=== PATIENT | female | born 1965 | race Caucasian/White ===

== ENCOUNTER 2019-05-17 06:06 | Inpatient (IN) ==
[2019-05-17] MEDS ORDERED: Albuterol 2.5 MG/3 ML NEBULIZER ONE (06:33)
[2019-05-17] MEDS ORDERED: Albuterol 2.5 MG/3 ML NEBULIZER IH ONE ×2 (06:37→08:33)
[2019-05-17] MEDS ORDERED: Lidocaine -MPF 2% 2 ML VIAL ONE (06:56)
[2019-05-17] MEDS ORDERED: Lidocaine -MPF 4% 5 ML AMPUL ONE (06:56)
[2019-05-17] MEDS ORDERED: Ondansetron 4 MG/2 ML VIAL ONE (06:56)
[2019-05-17] MEDS ORDERED: *HR* Rocuronium Bromide 50 MG/5 ML VIAL ONE (06:56)
[2019-05-17] MEDS ORDERED: Dexamethasone 4 MG/ML VIAL ONE (06:56)
[2019-05-17] MEDS ORDERED: *HR* FentaNYL (PF) 100 MCG/2 ML VIAL ONE (06:58)
[2019-05-17] MEDS ORDERED: *HR* Propofol 200 MG/20 ML VIAL IVP ONE (06:58)
[2019-05-17] MEDS ORDERED: *HR* Midazolam HCl 2 MG/2 ML VIAL ONE (06:58)
--- NOTE | 2019-05-17 07:26 | History & Physical Report ---
Date of Encounter: 05/17/19 Time of Encounter: 07:25 24 Hour HP Update - Instructions Instructions: If the History and Physical is less than 30 days old and was completed prior to A.M. admission and or procedure and has NOT been updated on calendar day of procedure please complete this update prior to performing procedure. - Update Patient reports changes in Medical Condition: No Changes in examination, assessment, or condition: No Changes in Medication: No Preop tests/diagnostics Reviewed: Yes Pre-Op MRSA Screen: Negative Surgery Remains Indicated: Yes Consent for Planned Operative Procedure(s) Verified: Yes - Pre-Operative Checklist Preoperative Checklist Indicated: Yes Prophylactic Antibiotic Ordered: Yes Home Medications Include Beta Gopal: No Beta Gopal Taken Today (Day of Surgery): No Beta Gopal Taken Yesterday (Day Prior to Surgery): No Is VTE Prophylaxis Indicated?: Yes
[2019-05-17] MEDS ORDERED: cefOXitin 2,000 MG in Water for inj. (sterile) 20 ML IVP ONE (07:40)
[2019-05-17] MEDS: Ringers Solution, Lactated 1,000 ML IVC SCH ×2 (07:45→09:34)
--- NOTE | 2019-05-17 07:54 | Anesthesia Evaluation PreOp ---
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: Denies Any Significant HX Other Medical History: Other (hemachromatosis) Anesthesia History: No Prior Anesthetic Complications Alcohol Use: occasionally Drug use: none Medications and Allergies Fexofenadine/Pseudoephedrine [Cyndy-D 24 Hour Tablet] 1 each PO DAILY 01/31/18 [History] Plant Stanol Heather [Cholest Off] 450 mg PO DAILY 01/31/19 [History] Allergy/AdvReac Type Severity Reaction Status Date / Time aspirin Allergy Unknown Rash Verified 05/17/19 07:04 Penicillins Allergy Unknown Swelling Verified 05/17/19 07:04 of Lip/Tongue/Throat - Meds/Allergy Pre-op Review Medications Reviewed: Yes Allergies Reviewed: Yes Beta Blockers on Current Med List: No Anesthesia Results - Labs Laboratory Tests 04/06/19 10:07 WBC 8.3 Hgb 15.4 Hct 46.3 H Plt Count 195 Anesthesia Exam Last Vital Signs Temp 98.2 F 05/17/19 06:28 Pulse 74 05/17/19 06:28 Resp 18 05/17/19 06:28 BP 129/73 05/17/19 06:28 Pulse Ox 99 05/17/19 06:28 Weight: 62 kg NPO (# of Hours): > 8 hrs - HEENT Pupil (Motor): Pupils equal, EOMI Mallampati: III Teeth: Normal Oral Opening: Greater than 3 - HAT PARTS CUTTER MACHINE LOC: Oriented - Cardiac Rhythm: Regular Murmur: None - Pulmonary Breath Sounds: bilateral Clear Respiratory Effort: Symmetrical Anesthesia Assess/Plan ASA Score: 2 Level of consciousness: Cooperative Anesthetic Plan: General Monitoring Plan: Standard Monitors Recovery Plan: PACU
[2019-05-17] MEDS ORDERED: Acetaminophen IV 1,000 MG/100 ML INFUS..BTL IVPB ONE (07:55)
[2019-05-17] MEDS ORDERED: Acetaminophen IV 1,000 MG/100 ML INFUS..BTL ONE (07:56)
--- NOTE | 2019-05-17 07:56 | History & Physical Report ---
Date of Encounter: 05/17/19 Time of Encounter: 07:30 24 Hour HP Update - Instructions Instructions: If the History and Physical is less than 30 days old and was completed prior to A.M. admission and or procedure and has NOT been updated on calendar day of procedure please complete this update prior to performing procedure. - Update Patient reports changes in Medical Condition: No Changes in examination, assessment, or condition: No Changes in Medication: No Preop tests/diagnostics Reviewed: Yes Surgery Remains Indicated: Yes Consent for Planned Operative Procedure(s) Verified: Yes - Pre-Operative Checklist Preoperative Checklist Indicated: Yes Prophylactic Antibiotic Ordered: Yes Home Medications Include Beta Gopal: No
[2019-05-17] MEDS ORDERED: *HR* PHENYLEPHRINE 1,000 MCG/10 ML SYRINGE IVP ONE (08:28)
[2019-05-17] MEDS ORDERED: *HR* HYDROmorphone (PF) 1 MG/ML SYRINGE IVP PRN (08:33)
[2019-05-17] MEDS ORDERED: Ketorolac 30 MG/ML VIAL IVP ONE (08:33)
[2019-05-17] MEDS ORDERED: *HR* OxyCODONE Immed Rel 5 MG TABLET PO PRN (08:33)
[2019-05-17] MEDS ORDERED: *HR* Promethazine 25 MG/ML VIAL IVP PRN (08:33)
[2019-05-17] MEDS ORDERED: Ondansetron 4 MG/2 ML VIAL IVP ONE (08:33)
[2019-05-17] MEDS ORDERED: *HR* Meperidine 25 MG/ML SYRINGE IVP PRN (08:33)
[2019-05-17] MEDS ORDERED: EPHEDrine 50 MG/ML VIAL ONE (08:56)
[2019-05-17] MEDS ORDERED: *HR* HYDROMORPHONE 2 MG/ML VIAL ONE (09:36)
--- NOTE | 2019-05-17 10:15 | Operative Note ---
Date of procedure: 05/17/19 Pre-op diagnosis: Gastric mass Post-op diagnosis: same Procedure: Robotic excision of gastric wall mass with 2 layered primary closure Anesthesia: JIMMIEA Surgeon: Austin Ross Was there an assistant front office manager present: Yes Gas Transfer Operator: Judit Hurley Estimated blood loss (cc): 10 Specimen: Gastric wall mass Condition: stable Disposition: floor Procedure in Detail: After informed consent, the patient was taken to the operating room placed in a supine position. After adequate sedation and anesthesia the abdomen was prepped and draped. Two towel clamps to place the umbilicus and a Verres needle was inserted. A pneumoperitoneum was created. Incision was made in the left subcostal region and a 12 mm cannulas placed under direct visualization. After the cameras inserted additional 8 and 5 mm cannulas were placed strategically a cross the abdomen. A liver retractor was placed underneath the left lobe. It was secured. The mass was easily identified. There were 2 additional cautery a insurance placed as well as a robotic scissor. An elliptical incision around the mass was created from a left to right position. The mass was fully excised utilizing the cut and coagulation mode of the scissors. Once it was fully excised it was placed over on the left side of the abdomen. There were 2 2-0 silk sutures that had been placed in the abdomen prior to beginning the operation. These were used to close the mucosa in running fashion. An additional 2 2-0 silk sutures were then placed in the abdomen and the seromuscular portion the stomach was closed in running fashion as well. This was performed in a cephalad to caudal position. An NG tube was in place. Once both layers of the stomach and closed the 4 needles were retrieved. The gastric mass was placed in an endoscopic bag and removed through the 12 mm cannula site. The fascia was closed with an 0 Vicryl suture. The skin was closed with 4-0 Vicryl suture. 30 mL of Marcaine was placed into the abdominal wall. Dermabond was placed on the skin incisions. She tolerated the procedure well.
--- NOTE | 2019-05-17 10:28 | OB/GYN Procedure Note ---
Endometrial Ablation - Diagnosis Date of procedure: 05/17/19 Pre-op diagnosis: other (Postmenopausal bleeding with thickened endometrial stripe) Post-op diagnosis: same - Procedure Endometrial ablation procedure: hysteroscopy, dilation & curretage Surgeon: Saleem Khalil Was there an surgical assistant present: No Anesthesia provider: Tristin Aviles Anesthesia Type: General Estimated blood loss (cc): 5 Endometrial ablation complications: none Specimens: endometrial curettings Disposition: no change Findings: endometrial polyp(s) Narrative: Following Dr. Ku robotic case patient was prepped and draped in usual sterile fashion for a D&C hysteroscopy for postmenopausal bleeding and thickened endometrial stripe. Consent had been obtained previously. Patient already on t able. Patient was then placed in yellowfin stirrups and examine her seizures performed. The uterus was nice and small fragment contour with no masses palpable. At this point a weighted speculum was placed the posterior aspect of vagina. Right angle speculum was placed in the anterior aspect. The cervix was then grasped with a sickle tooth tenaculum. The cervical os was stenotic. Using the hysteroscope I was able to get into the endometrial cavity and visualized. There are multiple polyps being seen. No other gross abnormalities. With this being noted a manual curettage was performed. Number of passes were made until I felt was the tissue is returned. The hysteroscope was then reinserted. Seen one polyp left the polyp forceps are utilized to remove this. The hysteroscope was then once again reinserted. C no further tissue the procedure was terminated. Sponge and needle, needle, Vermilion counts correct 2. There is no bleeding noted. Estimated blood loss approximately 5 m L. Patient was then cleansed, awoken and taken to recovery room. She is to be admitted per Dr. Ross for postop care after his case.
[2019-05-17] MEDS ORDERED: *HR* Metoprolol 5 MG/5 ML VIAL IVP ONE ×2 (11:04)
[2019-05-17] MEDS ORDERED: Ondansetron 4 MG/2 ML VIAL IVP PRN (11:31)
[2019-05-17] MEDS: 0.9 % Sodium Chloride 1,000 ML IVC SCH (13:37)
--- NOTE | 2019-05-17 13:45 | Anesthesia Evaluation Post Op ---
Date of Encounter: 05/17/19 Time of Encounter: 11:22 - Discharge PostOp Status: Transfer Patient to floor (Patient's vital signs have been reviewed. Patient is stable postoperatively and has adequately recovered from anesthesia. Patient is determined to have stable airway patency and respiratory function including respiratory rate and oxygen saturation. Patient has a stable heart rate, blood pressure and adequate hydration. Patients mental status is acceptable. Patients temperature is appropriate. Pain and nausea are adequately controlled)
[2019-05-17] MEDS: Ketorolac 15 MG/ML VIAL IVP PRN ×2 (17:19→23:33)
[2019-05-18] MEDS: 0.9 % Sodium Chloride 1,000 ML IVC SCH ×2 (03:27→17:21)
[2019-05-18] MEDS ORDERED: Scopolamine Patch 1.5 MG PATCH.TD72 TD ONE (08:04)
[2019-05-18] MEDS ORDERED: Chloraseptic Spray 177 ML BOTTLE MM PRN (08:06)
--- NOTE | 2019-05-18 08:56 | General Surgery Progress Note ---
Date of Encounter: 05/18/19 Time of Encounter: 08:00 - Assessment and Plan (1) Gastric mass Current Visit: Yes Status: Acute Date of procedure: 05/17/19 Pre-op diagnosis: Gastric mass Post-op diagnosis: same Procedure: Robotic excision of gastric wall mass with 2 layered primary closure Anesthesia: MY Surgeon: Austin Ross POD #1 as above. Pathology remains pending at this time. Patient is recovering quite nicely for postoperative day one. She states she does not want any opioid pain medication. We have scheduled alternating Ofirmev and Toradol. We will continue the NG tube for today and get an upper G.I. in the morning to rule out leak. Plan: Continue supportive care and discomfort management while awaiting full return of bowel function Continue G.I. and DVT prophylaxis EP CDs, protonix, hep SQ Incentive spirometry 10 times every hour while awake Out of bed to chair TID, make clamp NG to ambulate Activity as tolerated Apply ice 20 minutes on 20 minutes off as needed UGI in the a.m. a.m. labs IV fluids abdominal binder lidocaine patches (2) Postmenopausal bleeding Current Visit: Yes Status: Acute Status post hysteroscopy, dilation and curettage management per KILN STACKER (3) Nausea after anesthesia Current Visit: Yes Status: Acute Add scopolamine patch PRN IV ondansetron continue NG tube low intermittent wall suction limited ice chips for pleasure Qualifiers: Encounter type: initial encounter Qualified Code(s): T88.59XA - Other complications of anesthesia, initial encounter; R11.0 - Nausea Subjective Patient reports: still having pain, voiding w/o difficulty, flatus, no bowel movement, afebrile Narrative: Reports she does not want any opioids. States pain is tolerable. Is getting up to BSC. NG causing sore throat Objective Vital Signs - Last 8 Hours Temp Pulse Resp BP Pulse Ox 05/18/19 06:46 98.0 F 86 16 128/79 98 05/18/19 02:59 98.1 F 103 18 118/73 98 Intake and Output 05/17/19 05/18/19 05/18/19 23:59 07:59 15:59 Intake Total 0 / 1120 1000 / 1000 Output Total 0 / 17 10 / 10 Balance 0 / 1103 990 / 990 Intake: IV Fluids 1000 / 1000 0.9 % Sodium Chloride 1,000 ML 1000 / 1000 @ 75 mls/hr IVC .[id number] ELISSA Rx #:[id number] Oral 0 / 0 Output: Gastric Tube Lavage Amount 10 / 10 Right Nare 10 / 10 Gastric Drainage 0 / 0 Other: # Voids 2 Blood Glucose* 122 99 - General physical appearance well nourished, no distress, moderate pain (With movement) - ENT normal nares (NG secured), atraumatic, normocephalic - Neck Neck exam: trachea midline - Respiratory normal expansion, normal respiratory effort - Cardiovascular Cardiovascular exam: Present: RRR - Abdomen Abdomen: Present: bowel sounds present, soft, tender (Expected postoperative) - Incision Incision: Present: clean and dry, intact - Integumentary no rash - Neurologic normal coordination, normal sensation - Musculoskeletal normal posture - Psychiatric oriented to time, oriented to person, oriented to place, speech is normal, memory intact Consult Discharge Plan - Plan Referrals: Austin Ross DO [Partnered Physician] - 05/30/19 8:45 am Saleem Khalil MD [Partnered Physician] - 06/01/19 9:20 am
[2019-05-18] MEDS: Acetaminophen IV 1,000 MG/100 ML INFUS..BTL IVPB SCH ×3 (09:32→22:05)
[2019-05-18] MEDS: *HR* Heparin 5,000 UNIT/ML VIAL SQ SCH ×2 (09:33→17:22)
[2019-05-18] MEDS: Pantoprazole 40 MG VIAL IVP SCH (09:33)
[2019-05-18] MEDS: Ketorolac 15 MG/ML VIAL IVP SCH ×3 (13:13→23:57)
[2019-05-19] MEDS: 0.9 % Sodium Chloride 1,000 ML IVC SCH ×2 (04:24→17:19)
[2019-05-19] MEDS: Acetaminophen IV 1,000 MG/100 ML INFUS..BTL IVPB SCH ×3 (05:13→17:19)
[2019-05-19 05:26] LABS: Basophils % 0.6 %; Eosinophils # 0.1 K/mcL (0.0-0.6); Hematocrit 37.4 % (35.3-44.9); Hemoglobin 12.4 g/dL (11.5-15.4); Immature Granulocytes % 0.3 % (0-4); Lymphocytes # 1.8 K/mcL (0.6-4.6); Lymphocytes % 24.8 %; Mean Corpuscular HGB Conc 33.2 g/dL (31.6-35.5); Mean Corpuscular Hemoglobin 30.5 pg (28.0-33.3); Mean Corpuscular Volume 91.9 fL (83.0-100.0); Mean Platelet Volume 9.3 fL (9.4-12.4); Monocytes # 0.5 K/mcL (0.0-1.3); Monocytes % 6.3 %; Neutrophils # 4.9 K/mcL (1.6-8.9); Platelet Count 123 K/mcL (140-400); Red Blood Count 4.07 M/mcL (3.82-4.97); Red Cell Distribution Width 13.6 % (11.5-14.5); White Blood Count 7.3 K/mcL (4.3-11.1)
[2019-05-19] MEDS: *HR* Heparin 5,000 UNIT/ML VIAL SQ SCH ×2 (05:39→17:19)
[2019-05-19] MEDS: Ketorolac 15 MG/ML VIAL IVP SCH ×3 (05:39→17:19)
[2019-05-19 05:50] LABS: BUN/Creatinine Ratio 21 (6-26); Blood Urea Nitrogen 13 mg/dL (6-20); Carbon Dioxide 19 mEq/L (23-29); Chloride 109 mEq/L (98-107); Glucose 77 mg/dL (70-105); Osmolality,Calculated 289 (280-300); Potassium 3.6 mEq/L (3.5-5.1); Sodium 140 mEq/L (136-145); eGFR For African Americans > 60 (> 60); eGFR For Non-African Americans > 60 (> 60)
[2019-05-19] MEDS: Pantoprazole 40 MG VIAL IVP SCH (09:48)
[2019-05-19 11:54] VITALS: BP 125/73
--- NOTE | 2019-05-19 15:04 | Discharge Summary ---
Date of Encounter: 05/19/19 Time of Encounter: 15:07 - Discharge Diagnosis (1) Gastric mass Priority: Primary Status: Resolved (2) Postmenopausal bleeding Priority: Secondary Status: Acute (3) Nausea after anesthesia Priority: Secondary Status: Acute Qualifiers: Encounter type: initial encounter Qualified Code(s): T88.59XA - Other complications of anesthesia, initial encounter; R11.0 - Nausea General Surgery Exam Initial Vital Signs Temp Pulse Resp BP Pulse Ox 98.2 F 74 18 129/73 99 05/17/19 06:28 05/17/19 06:28 05/17/19 06:28 05/17/19 06:28 05/17/19 06:28 - General physical appearance well nourished, no distress - Neck trachea midline - Respiratory normal expansion, clear to auscultation - Cardiovascular Cardiovascular exam: Present: RRR - Abdomen Abdomen general surgery: Present: bowel sounds present, soft, non tender - Incision Incision: Present: clean and dry, intact - Integumentary Integumentary general surgery: Present: warm and dry - Neurologic Present: normal coordination, normal sensation - Musculoskeletal Present: normal posture - Psychiatric Psychiatric general surgery: Present: A&Ox3 - Hospital Course Hospital course: Ms. Mcgregor is a 53 year old female who presented on 05/18/2019 for elective robotic excision of the gastric wall mass with 2 layered primary closure by Dr. Ross. And NG tube was left in place and an upper G.I. was completed on 05/19/2019 which was negative for extravasation. Her NG tube was removed and she was started on a clear liquid diet, advanced to full liquid diet. This is acceptable for discharge home with protein supplements. Patient would like to discharge today. Of note she also underwent an ablation procedure for postmenopausal bleeding. Follow-up with [facility] as directed. Patient requested no narcotic medications during her hospital stay. She was treated with ibuprofen and Tylenol and tolerated this well. She can purchase [id number] ibuprofen and Tylenol to take as needed for discomfort. - Time Spent with Patient Total time spent providing and/or coordinating discharge services: - Discharge Medications Prescriptions: Continued Fexofenadine/Pseudoephedrine [Cyndy-D 24 Hour Tablet] 1 each PO DAILY Plant Stanol Heather [Cholest Off] 450 mg PO DAILY Home Medications: Fexofenadine/Pseudoephedrine [Cyndy-D 24 Hour Tablet] 1 each PO DAILY 01/31/18 [History] Plant Stanol Heather [Cholest Off] 450 mg PO DAILY 01/31/19 [History] Allergies/Adverse Reactions: Allergy/AdvReac Type Severity Reaction Status Date / Time aspirin Allergy Unknown Rash Verified 05/17/19 07:04 Penicillins Allergy Unknown Swelling Verified 05/17/19 07:04 of Lip/Tongue/Throat Date of admission: 05/17/19 11:27 Primary care physician: PCP NONE Consults: 05/19/19 14:58 consult to director of cardiac cath lab [Consult to Nutrition] [CONS] Stat Consulting Provider: NUTRITION Comment: Diet ed re:need increased protein vs chronic cond Reason for Dietary Consult: Diet Education Other:: hemochromatosis Discharging clinician: Nani Matthew Anticipated date of discharge: 05/19/19 Labs on day of discharge: Labs from last 24 hours 05/19/19 05/19/19 05/19/19 05:38 04:53 04:53 WBC 7.3 RBC 4.07 Hgb 12.4 Hct 37.4 MCV 91.9 MCH 30.5 MCHC 33.2 RDW 13.6 Plt Count 123 L MPV 9.3 L Immature Gran % 0.3 Seg Neutrophils % 67.0 Lymphocytes % 24.8 Monocytes % 6.3 Eosinophils % 1.0 Basophils % 0.6 Neutrophils # 4.9 Lymphocytes # 1.8 Monocytes # 0.5 Eosinophils # 0.1 Basophils # 0.0 Sodium 140 Potassium 3.6 Chloride 109 H Carbon Dioxide 19 L BUN 13 Creatinine 0.61 Est GFR ( Amer) > 60 Est GFR (Non-Af Amer) > 60 BUN/Creatinine Ratio 21 Glucose 77 POC Glucose 78 Calculated Osmolality 289 Calcium 8.0 L 05/19/19 05/18/19 05/18/19 00:05 18:00 11:11 WBC RBC Hgb Hct MCV MCH MCHC RDW Plt Count MPV Immature Gran % Seg Neutrophils % Lymphocytes % Monocytes % Eosinophils % Basophils % Neutrophils # Lymphocytes # Monocytes # Eosinophils # Basophils # Sodium Potassium Chloride Carbon Dioxide BUN Creatinine Est GFR ( Amer) Est GFR (Non-Af Amer) BUN/Creatinine Ratio Glucose POC Glucose 84 78 76 Calculated Osmolality Calcium 05/18/19 05/18/19 05/17/19 05:21 03:10 23:26 WBC RBC Hgb Hct MCV MCH MCHC RDW Plt Count MPV Immature Gran % Seg Neutrophils % Lymphocytes % Monocytes % Eosinophils % Basophils % Neutrophils # Lymphocytes # Monocytes # Eosinophils # Basophils # Sodium Potassium Chloride Carbon Dioxide BUN Creatinine Est GFR ( Amer) Est GFR (Non-Af Amer) BUN/Creatinine Ratio Glucose POC Glucose 99 105 H 122 H Calculated Osmolality Calcium - Impressions ITS Impressions Upper GI Series 05/19/19 06:30 IMPRESSION: No evidence of gastric leak. Slow emptying of the stomach. D/ / 05/19/2019 11:04:24 David Mercado MD / nina Interpreting Provider: David Mercado MD - Patient Status Disposition: Home, Self-Care Condition: Good Functional capacity at discharge: independent ambulation Overall status at discharge: patient is progressing back to baseline - Discharge Instructions Follow Up With: Austin Ross DO [Partnered Physician] - 05/30/19 8:45 am Saleem Khalil MD [Partnered Physician] - 06/01/19 9:20 am Additional Instructions: General Surgical Discharge Instructions 1. No pushing, pulling, or lifting greater than 15 lbs for 2-4 weeks (depending upon procedure). 2. You may remove your dressings and shower beginning today, but no tub baths, soaking, or swimming for 2 weeks. 3. No driving for one weeks unless otherwise specified and then you may resume driving when you are off narcotics and are safe to react in a car. 4. Take ibuprofen every 8 hours for discomfort. If this does not relieve discomfort, you may take Tyleonol. You can alternate these two . 5. Eat small frequent meals. 6. Report any fevers greater than 100.5F, increase abdominal discomfort, drainage that looks like pus, increased redness or pain at the surgical site, or any vomiting. 7. Report any pain in the calves, shortness of breath, or rapid heartbeat. 8. Follow-up in the office as directed. 9. If you were prescribed antibiotics, do not stop them without talking to your provider. - Diet and Activity Activity: increase activity as tolerated Diet: other (full liquid with protein shakes or soft diet as tolerated)
== END 2019-05-19 18:04 | disposition home or self-care (01) | DRG 328 ==
LOC: SAMDAY 06:06 → 3ANU 11:27
PROVIDERS: ADMIT Surgery; ATTEND Surgery